=== PATIENT | female | born 1995 | race Caucasian/White ===

== ENCOUNTER → 2016-07-18 | Day surgery (SDC) | payer OTHER ==
[2016-07-09 13:59] VITALS: BMI 22.0
[~2016-07-18] VITALS: Ht 154.9 cm; Wt 52.3 kg
[~2016-07-18] MED LIST: BCPILLS PO; LIDOCAINE HCL 2% 2 ML VIAL (20MG/ML) ONE; LINA1CAP PO; MIDAZOLAM HCL 1 MG/ML 2ML VIAL ONE; ONDANSETRON INJ 2 MG/ML 2 ML VIAL ONE; PROPOFOL IV EMULSION 10 MG/ML 20 ML VIAL IV ONE; RANI150T3 PO; VNTHFA/IN INH
[2016-07-18 11:34] VITALS: TEMP 36.5
[2016-07-18 11:35] VITALS: Ht 154.9 cm; Wt 52.3 kg
--- NOTE | 2016-07-18 12:27 | Endo History and Physical ---
History & Physical Date of Service: Jul 18, 2016. Chief Complaint: CONSTIPATION Referring Physician: KATALINA MACHADO History of Present Illness 20 yo CF who presents for colonoscopy secondary to change in bowel habits ( constipation). Past Surgical History Hx Cardiac Surgery: No Hx Internal Defibrillator: No Hx Pacemaker: No Hx Abdominal Surgery: No Hx of Implantable Prosthesis: No Hx Post-Op Nausea and Vomiting: No Hx Cancer Surgery: No Hx Thoracic Surgery: No Hx Orthopedic: Yes (LEFT SHOULDER SX) Hx Urinary Tract Surgery: No Family History None Social History Smoking Status: Never Smoker Hx Substance Use: No Hx Alcohol Use: No Allergies Coded Allergies: Penicillins (Verified Allergy, Intermediate, HIVES, 07/18/16) Current Medications Reported Home Medications Medications Dose Route/Sig Max Daily Dose Days Date Category Ventolin Hfa (Albuterol) 200 Puffs/27914 Mcg Aers 2-4 Puffs INH Q6H PRN 07/09/16 Reported Control Pills (Miscellaneous) Tab 1 Tab PO QAM 07/09/16 Reported Linzess (Linaclotide) 145 Mcg Cap 1 Cap PO HS 07/09/16 Reported Vital Signs Weight (Kilograms): 52.27 Height (Feet): 5 Height (Inches): 1 Date Time Temp Pulse Resp B/P Pulse Ox O2 Delivery O2 Flow Rate FiO2 07/18/16 11:34 36.5 70 22 130/75 100 Room Air Physical Exam General Appearance: WD/WN, no apparent distress Respiratory/Chest: Auscultation: breath sounds normal Cardiovascular: Heart Auscultation: RRR Abdomen: Bowel Sounds: normal Inspection & Palpation: soft, non-distended, no tenderness, guarding & rebound Assessment and Plan Assessment: 20 yo CF who presents for colonoscopy secondary to change in bowel habits ( constipation). Plan: Proceed with colonoscopy.
--- NOTE | 2016-07-18 12:57 | GI REPORT ---
Procedure Date: 07/18/2016 11:57 AM Procedure: Colonoscopy Indications: Change in bowel habits Medicines: Monitored Anesthesia Care Complications: No immediate complications. Estimated Blood Loss: Estimated blood loss: none. Procedure: Pre-Anesthesia Assessment: - Prior to the procedure, a History and Physical was performed, and patient medications and allergies were reviewed. The patient's tolerance of previous anesthesia was also reviewed. The risks and benefits of the procedure and the sedation options and risks were discussed with the patient. All questions were answered, and informed consent was obtained. Prior Anticoagulants: The patient has taken no previous anticoagulant or antiplatelet agents. ASA Grade Assessment: II - A patient with mild systemic disease. After reviewing the risks and benefits, the patient was deemed in satisfactory condition to undergo the procedure. After I obtained informed consent, the scope was passed under direct vision. Throughout the procedure, the patient's blood pressure, pulse, and oxygen saturations were monitored continuously. The scope was introduced through the anus and advanced to the terminal ileum. The colonoscopy was performed without difficulty. The patient tolerated the procedure well. The quality of the bowel preparation was good. The terminal ileum, ileocecal valve, appendiceal orifice, and rectum were photographed. Findings: A scattered area of mild melanosis was found in the entire colon. Biopsies were taken with a cold forceps for histology. Non-bleeding internal hemorrhoids were found during retroflexion. The hemorrhoids were small. Impression: - Melanosis in the colon. Biopsied. - Non-bleeding internal hemorrhoids. Recommendation: - Resume previous diet. - Continue present medications. - Repeat colonoscopy for surveillance based on pathology results. - Return to primary care physician as previously scheduled. Mike Richardson, DO 07/18/2016 12:56:13 PM This report has been signed electronically. Note Initiated On: 07/18/2016 11:57 AM
--- NOTE | 2016-07-18 12:58 | Discharge Instructions ---
Endoscopy Patient Instructions Date / Procedure(s) Performed Jul 18, 2016. Colonoscopy Allergy Information Coded Allergies: Penicillins (Verified Allergy, Intermediate, HIVES, 07/18/16) Discharge Date / Findings Jul 18, 2016. Melanosis coli Internal hemorrhoids Medication Instructions Stopped Medication(s): LINZESS LAST DOSE 07/14/16 OK to resume all medications today as prescribed Reported Home Medications Medications Dose Route/Sig Max Daily Dose Days Date Category Ventolin Hfa (Albuterol) 200 Puffs/86173 Mcg Aers 2-4 Puffs INH Q6H PRN 07/09/16 Reported Control Pills (Miscellaneous) Tab 1 Tab PO QAM 07/09/16 Reported Linzess (Linaclotide) 145 Mcg Cap 1 Cap PO HS 07/09/16 Reported Provider Instructions Activity Restrictions - No exercising or heavy lifting for 24 hours. - Do not drink alcohol the day of the procedure. - Do not drive a car or operate machinery until the day after the procedure. - Do not make any important decisions or sign important papers in 24 hours after the procedure. Following Day: - Return to full activity which may include returning to work/school. Diet Start your diet with liquids and light foods (jello, soup, juice, toast). Then eat your usual diet if not nauseated. Treatment For Common After Affects For mild abdominal pain, bloating, or excessive gas: - Rest - Eat lightly - Lie on right side Follow-Up Information Follow-up with KATALINA MACHADO as scheduled Anesthesia Information What You Should Know You have had a procedure that required some medicine to reduce anxiety and discomfort. This treatment is called moderate sedation. After receiving the treatment, you may be sleepy, but you will be able to breathe on your own. The effects of the treatment may last for several hours. Follow these instructions along with Activity/Diet recommendations noted above: * Do NOT do anything where dizziness or clumsiness would be dangerous. * Rest quietly at home today, then you can be up and about tomorrow. * Have a responsible person stay with you the rest of today. * You may have had an I.V. today. If so, you may take the dressing off later today. Recommendations Call your doctor if: * Trouble breathing * Continuous vomiting for more than 24 hours * Temperature above 101 degrees * Severe abdominal pain or bloating * Pain not relieved by pain medicine ordered * There is increased drainage or redness from any incision * A large amount of rectal bleeding greater than 2-3 tablespoons. (If you had a polyp/s removed or have hemorrhoids, a small amount of blood - from the rectum is to be expected.) * You have any unanswered questions or concerns. IN THE EVENT OF A SERIOUS EMERGENCY, GO TO THE NEAREST EMERGENCY ROOM Your discharge instructions were prepared by provider Mike Richardson. Patient Instructions Signature Page Lori Johnson Patient (or Guardian) Signature/Date: I have read and understand the instructions given to me by my caregivers. Caregiver/RN/Doctor Signature/Date: The above-named patient and/or guardian has received patient instructions on this date. + Original Patient Signature Page (only) stays with chart. Please make copy for patient.
[2016-07-18 13:20] VITALS: BP 117/60; PULSE 59; O2SAT 100
--- NOTE | 2016-07-18 13:33 | Anesthesiology Progress Note ---
Anesthesia Post Op Note Date & Time Jul 18, 2016 at 13:32 Vital Signs Pain Intensity: 0 Vital Signs Past 12 Hours Date Time Temp Pulse Resp B/P Pulse Ox O2 Delivery O2 Flow Rate FiO2 07/18/16 13:20 59 20 117/60 100 Room Air 07/18/16 13:02 77 20 104/61 100 Room Air 07/18/16 12:47 76 16 97/49 99 Room Air 07/18/16 11:34 36.5 70 22 130/75 100 Room Air Notes Mental Status: alert / awake / arousable, participated in evaluation Pt Amnestic to Procedure: Yes Nausea / Vomiting: adequately controlled Pain: adequately controlled Airway Patency, RR, SpO2: stable & adequate BP & HR: stable & adequate Hydration State: stable & adequate Anesthetic Complications: no major complications apparent
== END | disposition home or self-care (01) ==
LOC: C.GI 11:15
PROVIDERS: ATTEND Internal Medicine
DX: R19.4 Change in bowel habit (principal); K57.30 Diverticulosis of large intestine without perforation or abscess without bleeding; K64.8 Other hemorrhoids; K63.89 Other specified diseases of intestine

== ENCOUNTER → 2017-02-05 | Outpatient (CLI) | payer OTHER ==
[~2017-02-05] MED LIST changes: -LIDOCAINE HCL 2% 2 ML VIAL (20MG/ML) ONE; -MIDAZOLAM HCL 1 MG/ML 2ML VIAL ONE; -ONDANSETRON INJ 2 MG/ML 2 ML VIAL ONE; -PROPOFOL IV EMULSION 10 MG/ML 20 ML VIAL IV ONE
[2017-02-05 17:19] LABS: BASO % 0.3 %; BASO ABS # 0.02 K/uL (0-0.2); COMPLETE YES; EOS % 1.3 %; IG% 0.2 %; LYMPH % 40.7 %; LYMPH ABS # 2.43 K/uL (1.2-3.4); MEAN CELL VOLUME 88.5 fL (80-100); MEAN CORPUSCULAR HEMOGLOBIN 29.4 pg (25-34); MEAN CORPUSCULAR HGB CONC 33.2 g/dl (32-36); MEAN PLATELET VOLUME 10.3 fL (7.4-10.4); NEUT % 48.5 %; PLATELET COUNT 291 K/uL (130-400); RED BLOOD COUNT 4.18 M/uL (4.2-5.4); WHITE BLOOD COUNT 5.97 K/uL (4.8-10.8)
[2017-02-05 17:29] LABS: TOTAL IRON BINDING CAPACITY 409 mcg/dl (250-450)
== END | disposition home or self-care (01) ==
LOC: C.LABPBG 15:18
PROVIDERS: ATTEND Physician Assistant
DX: R10.31 Right lower quadrant pain (principal); R10.32 Left lower quadrant pain; R23.8 Other skin changes

== ENCOUNTER → 2017-02-17 | Outpatient (CLI) | payer OTHER ==
[2017-02-17 17:43] LABS: BASO % 0.4 %; BASO ABS # 0.02 K/uL (0-0.2); COMPLETE YES; EOS % 1.3 %; HEMATOCRIT 36.9 % (37-47); IG% 0.2 %; LYMPH % 48.1 %; LYMPH ABS # 2.55 K/uL (1.2-3.4); MEAN CELL VOLUME 89.1 fL (80-100); MEAN CORPUSCULAR HEMOGLOBIN 30.4 pg (25-34); MEAN CORPUSCULAR HGB CONC 34.1 g/dl (32-36); MEAN PLATELET VOLUME 10.6 fL (7.4-10.4); MONO % 8.9 %; NEUT % 41.1 %; PLATELET COUNT 288 K/uL (130-400); RED BLOOD COUNT 4.14 M/uL (4.2-5.4)
[2017-02-20 16:50] LABS: EPSTEIN BARR VIR CAPSID IGG 53.1 U/ML
== END | disposition home or self-care (01) ==
LOC: C.LABPBG 15:18
PROVIDERS: ATTEND Physician Assistant
DX: R42 Dizziness and giddiness (principal); J35.1 Hypertrophy of tonsils; R53.83 Other fatigue

== ENCOUNTER → 2017-02-20 | Outpatient (CLI) | payer OTHER ==
[2017-02-20 12:24] LABS: PROTHROMBIN TIME (PATIENT) 10.8 SECONDS (9.0-12.0)
[2017-02-20 12:28] LABS: POTASSIUM 4.1 mmol/L (3.5-5.1)
== END | disposition home or self-care (01) ==
LOC: C.RAD 10:57
DX: Z01.818 Encounter for other preprocedural examination (principal)

== ENCOUNTER → 2017-05-06 | Outpatient (CLI) | payer OTHER ==
[~2017-05-06] MED LIST changes: +FLUO10CA48 PO
[2017-05-06 17:49] LABS: BASO % 0.7 %; BASO ABS # 0.04 K/uL (0-0.2); COMPLETE YES; EOS % 1.8 %; HEMATOCRIT 35.9 % (37-47); IG% 0.4 %; LYMPH % 36.5 %; LYMPH ABS # 2.05 K/uL (1.2-3.4); MEAN CELL VOLUME 86.5 fL (80-100); MEAN CORPUSCULAR HEMOGLOBIN 30.4 pg (25-34); MEAN CORPUSCULAR HGB CONC 35.1 g/dl (32-36); MEAN PLATELET VOLUME 10.6 fL (7.4-10.4); MONO % 8.9 %; NEUT % 51.7 %; PLATELET COUNT 280 K/uL (130-400); RED BLOOD COUNT 4.15 M/uL (4.2-5.4); WHITE BLOOD COUNT 5.61 K/uL (4.8-10.8)
[2017-05-06 18:04] LABS: PROTHROMBIN TIME (PATIENT) 10.2 SECONDS (9.0-12.0)
[2017-05-06 18:09] LABS: POTASSIUM 3.8 mmol/L (3.5-5.1)
== END | disposition home or self-care (01) ==
LOC: C.LABPBG 15:40
DX: Z01.818 Encounter for other preprocedural examination (principal)

== ENCOUNTER → 2017-08-06 | Outpatient (CLI) | payer OTHER ==
[2017-08-06 12:32] LABS: BASO % 0.3 %; BASO ABS # 0.02 K/uL (0-0.2); EOS % 0.5 %; EOS ABS # 0.03 K/uL (0-0.5); HEMATOCRIT 37.6 % (37-47); HEMOGLOBIN 12.9 g/dL (12.0-16.0); IG# 0.01 K/uL (0.00-0.02); LYMPH ABS # 1.44 K/uL (1.2-3.4); MEAN CELL VOLUME 88.3 fL (80-100); MEAN CORPUSCULAR HEMOGLOBIN 30.3 pg (25-34); MEAN CORPUSCULAR HGB CONC 34.3 g/dl (32-36); MEAN PLATELET VOLUME 10.6 fL (7.4-10.4); MONO % 6.2 %; MONO ABS # 0.37 K/uL (0.11-0.59); NEUT % 68.8 %; NEUT ABS # 4.14 K/uL (1.4-6.5); PLATELET COUNT 309 K/uL (130-400); RED CELL DISTRIBUTION WIDTH CV 12.8 % (11.5-14.5); RED CELL DISTRIBUTION WIDTH SD 40.9 fL (36.4-46.3); WHITE BLOOD COUNT 6.01 K/uL (4.8-10.8)
[2017-08-06 13:19] LABS: ALBUMIN 3.8 gm/dl (3.4-5.0); ALT/SGPT 21 U/L (12-78); BLOOD UREA NITROGEN 8 mg/dl (7-18); CALCIUM 9.2 mg/dl (8.5-10.1); CARBON DIOXIDE 27 mmol/L (21-32); CREATININE 0.86 mg/dl (0.60-1.20); GLUCOSE 75 mg/dl (70-99); POTASSIUM 4.1 mmol/L (3.5-5.1); SODIUM 139 mmol/L (136-145); TOTAL PROTEIN 7.4 gm/dl (6.4-8.2)
[2017-08-06 13:30] LABS: ALKALINE PHOSPHATASE 63 U/L (45-117); AST/SGOT 15 U/L (15-37)
== END | disposition home or self-care (01) ==
LOC: C.LABPBG 10:37
PROVIDERS: ATTEND Family Medicine
DX: R53.83 Other fatigue (principal)

== ENCOUNTER → 2017-08-12 | Outpatient (CLI) | payer OTHER | END | disposition home or self-care (01) | LOC: C.LABSPEC 11:05 | PROVIDERS: ATTEND Obstetrics & Gynecology | DX: Z11.3 Encounter for screening for infections with a predominantly sexual mode of transmission (principal); Z11.8 Encounter for screening for other infectious and parasitic diseases ==

== ENCOUNTER 2019-02-26 11:13 | Inpatient (IN) ==
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
[2019-02-26] MEDS ORDERED: CEFAZOLIN 2000MG 2,000 MG/15 ML SYR IV SCH (12:00)
[2019-02-26] MEDS ORDERED: CITRIC ACID/SODIUM CITRATE 15 ML UDC PO ONE (12:00)
[2019-02-26] MEDS ORDERED: LACTATED RINGER'S 1,000 ML IV SCH ×3 (12:00→16:20)
[2019-02-26 12:16] LABS: Basophils # (auto) 0.03 K/uL (0-0.2); Basophils % (auto) 0.3 %; Eosinophils # (auto) 0.06 K/uL (0-0.5); Eosinophils % (auto) 0.5 %; Hematocrit (blood only) 36.6 % (37-47); Hemoglobin 12.6 g/dL (12.0-16.0); Immature Granulocytes # (auto) 0.14 K/uL (0.00-0.02); Immature Granulocytes % (auto) 1.2 %; Lymphocytes # (auto) 1.98 K/uL (1.2-3.4); Lymphocytes % (auto) 17.5 %; Mean Corpuscular Volume 88.4 fL (80-100); Mean Platelet Volume 11.7 fL (7.4-10.4); Monocytes # (auto) 0.59 K/uL (0.11-0.59); Monocytes % (auto) 5.2 %; Neutrophils # (auto) 8.54 K/uL (1.4-6.5); Neutrophils % (auto) 75.3 %; Platelet Count 199 K/uL (130-400); RDW Coefficient of Variation 13.2 % (11.5-14.5); RDW Standard Deviation 42.1 fL (36.4-46.3); Red Blood Count 4.14 M/uL (4.2-5.4); White Blood Count 11.34 K/uL (4.8-10.8)
[2019-02-26 12:38] LABS: Mean Corpuscular Hgb Conc 34.4 g/dL (32-36)
[2019-02-26] MEDS ORDERED: OXYTOCIN 10 UNITS/ML VIAL ONE (13:01)
[2019-02-26] MEDS ORDERED: MoRPHine SULFATE PF 1 MG/ML 10 ML AMP/VIAL ONE (13:01)
[2019-02-26] MEDS ORDERED: ePHEDrine sulfate 50 MG/ML AMP ONE (13:01)
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
[2019-02-26] MEDS ORDERED: MEPERIDINE HCL 25 MG/ML CARP IV PRN (13:07)
[2019-02-26] MEDS ORDERED: MoRPHine SULFATE PF 1 MG/ML 10 ML AMP/VIAL INT SPINAL ONE (13:07)
[2019-02-26] MEDS ORDERED: NALOXONE HCL 0.08 MG in SYRINGE 1.8 ML IV PRN (13:07)
[2019-02-26] MEDS ORDERED: NALOXONE HCL 0.4 MG/1 ML VIAL/CARP IV PRN (13:07)
[2019-02-26] MEDS ORDERED: ePHEDrine sulfate 50 MG/ML AMP IV PRN (13:07)
[2019-02-26] MEDS ORDERED: METOCLOPRAMIDE HCL 20 MG in SODIUM CHLORIDE 0.9% 50 ML IV PRN (13:07)
[2019-02-26] MEDS ORDERED: PROMETHAZINE HCL 25 MG in SODIUM CHLORIDE 0.9% 50 ML IV PRN (13:07)
[2019-02-26] MEDS ORDERED: NALOXONE HCL 1 MG in SODIUM CHLORIDE 0.9% 1000ML 1,000 ML IV PRN (13:07)
[2019-02-26] MEDS ORDERED: LACTATED RINGER'S 500 ML IV PRN (13:07)
[2019-02-26] MEDS ORDERED: HYDROmorphone INJ 1 MG/ML SYRINGE IV PRN (13:07)
[2019-02-26] MEDS ORDERED: DiphenhydrAMINE HCL 50 MG/ML VIAL IV PRN (13:07)
[2019-02-26] MEDS ORDERED: DC INTRASPINAL MORPHINE SCH (13:15)
[2019-02-26] MEDS ORDERED: SODIUM CHLORIDE 0.9% 1000ML 1,000 ML IV SCH (13:15)
[2019-02-26] MEDS ORDERED: NO NARCOTICS OR SEDATIVES SCH (13:15)
--- NOTE | 2019-02-26 14:09 | Post Operative Brief Note ---
PG Immediate Post Op with CF Date of Surgery February 26, 2019 Pre & Post Diagnosis Operation Date: 02/26/19 12:15 Pre-Op Diagnosis: 1. Breech 2. Active labor Post-Op Diagnosis: !. Same, section delivery live male child at 1339 Procedure Operation Date: 02/26/19 12:15 Actual Procedures p Section in LD - Abram Henao Jr, MD, FACOG Surgeon Abram Henao Jr, MD, FACOG Janitor Iglesia Estimated Blood Loss 800 Findings See Below (viable male, Apgears 9/9; weight & 7lbs 8 ozc, art/venous gasses pending; normal appearing tubes and ovaries bilaterally) Drains Finch Catheter
--- NOTE | 2019-02-26 14:53 | Anesthesiology Progress Note ---
Date of Service February 26, 2019 Anesthesia Post Procedure Vital Signs Vital Signs: Temp Pulse Resp BP Pulse Ox 02/26/19 14:48 86 18 126/80 100 02/26/19 14:43 97 H 100 02/26/19 14:38 87 20 129/82 97 02/26/19 14:33 101 H 100 02/26/19 14:28 92 H 20 124/74 100 02/26/19 14:23 92 H 100 02/26/19 14:18 36.5 C 96 H 22 123/78 100 02/26/19 12:03 102 H 130/84 02/26/19 11:47 101 H 146/94 H 02/26/19 11:34 100 H 133/85 02/26/19 11:24 36.7 C 88 18 130/86 Transfer of Care Handoff Completed per policy Notes Mental Status: alert / awake / arousable and participated in evaluation Patient Amnestic to Procedure: Yes Nausea / Vomiting: adequately controlled Pain: adequately controlled Airway Patency, RR, SpO2: stable & adequate BP & HR: stable & adequate Hydration State: stable & adequate Neuraxial Anesthesia: was administered and sensory block is resolving Anesthetic Complications: no major complications apparent
[2019-02-26 15:19] LABS: Base Excess Cord Arterial Bld -4.5 mEq/L (-9-1.8); CO2 Cord Arterial Blood 59 mmHg (39.1-73.5); HCO3 Cord Arterial Blood 24 mmol/L (19.7-28.5); pH Cord Arterial Blood 7.24 (7.1-7.38)
[2019-02-26 15:22] LABS: Base Excess Cord Venous Blood -1.6 mEq/L (-7.7-1.9); Cord Venous Blood HCO3 24 mmol/L (18.4-26.8); Cord Venous Blood PCO2 44 mmHg (30.4-57.2); Cord Venous Blood PO2 18 mmHg (14.1-43.3); Cord Venous Blood pH 7.36 (7.20-7.44)
[2019-02-26 15:23] LABS: O2 Saturation Cord Venous Bld < 60.0 % (<68)
[2019-02-26 15:27] LABS: Oxygen Sat Cord Arterial Blood < 60.0 % (<60); PO2 Cord Arterial Blood < 10.0 % (4.1-31.7)
[2019-02-26] MEDS: KETOROLAC 30 MG/ML VIAL IV PRN ×2 (15:40→21:11)
[2019-02-26] MEDS: NALBUPHINE HCL INJ 10 MG/ML AMP IV PRN ×2 (16:02→21:09)
[2019-02-26] MEDS ORDERED: BENZOCAINE 20% AER SPR 82.5 GM CAN EXT PRN (16:20)
[2019-02-26] MEDS ORDERED: DIPHTHERIA/TETANUS/PERTUSSIS 0.5 ML SYR/VIAL IM ONE (16:20)
[2019-02-26] MEDS ORDERED: HYDROCORTISONE ACETATE 25 MG SUPP PR PRN (16:20)
[2019-02-26] MEDS ORDERED: ONDANSETRON INJ 2 MG/ML 2 ML VIAL IV PRN (16:20)
[2019-02-26] MEDS ORDERED: SUPERCREAM 0.870% 15 GM JAR EXT PRN (16:20)
[2019-02-26] MEDS: SIMETHICONE 80 MG CHEW PO SCH ×2 (16:35→20:24)
[2019-02-26] MEDS: OXYTOCIN 20 UNITS in LACTATED RINGER'S 1,000 ML IV SCH (19:55)
--- NOTE | 2019-02-26 23:34 | Operative Report ---
DATE OF OPERATION: 02/26/2019 PREOPERATIVE DIAGNOSES: 1. Term . 2. Breech presentation. 3. Active labor. POSTOPERATIVE DIAGNOSES: 1. Term . 2. Breech presentation. 3. Active labor. PROCEDURE PERFORMED: Primary low cervical transverse section. SURGEON: Abram Henao M.D. SUPERVISOR PAPER MACHINE: Dr. Dilcia Parekh ANESTHESIA: Spinal. FINDINGS: Viable male infant with Apgars of 9 and 9 and weight of 7 pounds 8 ounces, normal-appearing tubes and ovaries bilaterally. Arterial and venous cord gases are pending. PROCEDURE IN DETAIL: The patient was taken to the operating room and after spinal anesthesia, was placed in supine position and draped and prepped in the usual fashion. Pfannenstiel type incision was made. Underlying subcutaneous tissue was dissected down to the ventral abdominal fascia, which was nicked and opened in a horizontal manner. Preperitoneal fascia was dissected away until the peritoneal cavity was entered and opened in a vertical manner. Bladder blade was placed and the peritoneum overlying the uterus was elevated, opened in a semi-lunar fashion, the inferior margin of which was taken down creating the bladder flap. The uterus was entered sharply and extended in a semilunar fashion manually. Rupture of membranes for clear fluid. A viable male was delivered from a adrian breech presentation. Cord was clamped and cut and passed off to pediatrics, who was in attendance for delivery. Cord gases, cord blood samples were obtained and the placenta was delivered spontaneously. The uterus was exteriorized and the uterine cavity was wiped clean of any residual blood tissue and/or clot. The uterine incision was then closed with 2 layers of Vicryl, the first a running locking stitch, the second an imbricating stitch. Hemostasis was achieved and the uterus was returned to the pelvic cavity. The pericolic gutters were cleared bilaterally of any blood tissue and/or clot. Uterine incision was inspected for hemostasis again, which was present. The sponge and needle count was correct. Rectus muscle was plicated in the midline with a running 2-0 Vicryl stitch. The fascia was closed laterally with a running 0 Vicryl suture. The subcutaneous tissue was irrigated with warm saline and the skin incision was closed with a 4-0 Monocryl subcuticular suture. Sterile dressing was applied. The patient was taken to the recovery room in satisfactory condition. I attest to the content of the Intraoperative Record and any orders documented therein. Any exceptions are noted below. MTDD
[2019-02-27] MEDS ORDERED: Nursing to Pharmacy Communication ONE (00:32)
--- NOTE | 2019-02-27 02:33 | Anesthesia Procedure Note ---
Date of Service February 27, 2019 Anesthesia Post Epidural Note Vital Signs Vital Signs: Temp Pulse Resp BP Pulse Ox 36.8 C 82 18 124/85 97 02/26/19 23:20 02/26/19 23:20 02/27/19 01:10 02/26/19 23:20 02/27/19 01:10 Pain Intensity Bilateral Anterior Abdomen: Pain Intensity: 3 Notes Mental Status: alert / awake / arousable Nausea / Vomiting: adequately controlled Pain: adequately controlled Airway Patency, RR, SpO2: stable & adequate BP & HR: stable & adequate Hydration State: stable & adequate Neuraxial Anesthesia: was administered and sensory block is resolving Anesthetic Complications: no major complications apparent and Pt Satisfied with anesthetic care Epidural: Removed without complications and With tip intact
[2019-02-27] MEDS: OXYTOCIN 20 UNITS in LACTATED RINGER'S 1,000 ML IV SCH (03:38)
[2019-02-27] MEDS: NALBUPHINE HCL INJ 10 MG/ML AMP IV PRN (03:48)
--- NOTE | 2019-02-27 06:02 | Obstetrical Progress Note ---
Date of Service <Dilcia Parekh MD - Last Filed: 02/27/19 07:04> February 27, 2019 Assessment & Plan <Dilcia Parekh MD - Last Filed: 02/27/19 07:04> (1) Status post : Lori is a 23yo on POD 1 of elective c/s for breech presentation at term - GBS -, Rh +, Rubella immune -Vitals reviewed and WNL -patient is doing clinically well Plan for today is to remove jaeger; encourage ambulation, progress diet as tolerated, provide analgesia as needed, monitor lochia - After discharge will have [address] Henao. Subjective <Dilcia Parekh MD - Last Filed: 02/27/19 07:04> Ambulation: ambulating normally Voiding: jaeger catheter in place Passing Gas:: Yes Diet Tolerance:: regular diet Lochia:: Moderate Feeding Type:: breast feeding Current Pain Level(1-10): 0 patient examined at bedside; pain can go to an 8/10 while walking Constitutional: no fever, no chills and no sweats Respiratory: no cough and no dyspnea Cardiovascular: no chest pain and no palpitations Breast: no breast pain Gastrointestinal: no nausea and no vomiting Genitourinary (female): no dysuria and no urinary frequency Neurologic: no headache(s) Physical Exam <Dilcia Parehk MD - Last Filed: 02/27/19 07:04> Constitutional WD/WN, vitals as above no acute distress Respiratory normal respiratory effort, lungs clear to auscultation does not use accessory muscles Auscultation: no crackles, no rhonchi, no wheezes and no pleural rub Cardiovascular Rate/Rhythm: regular rate and regular rhythm Heart Sounds: normal S1 and normal S2; no gallop, no murmur and no cardiac rub Extremities: no calf tenderness and no pedal edema SCDs in place on bilateral LE Gastrointestinal (Abdomen) Inspection/Auscultation: normal bowel sounds; abdomen not distended Percussion/Palpation: abdomen soft Genitourinary Uterus: fundus firm, palpable 2 cm below the umbilicus surgical incision: dressing in place, dry; appropriate post-op tenderness Results & Data <Dilcia Parekh MD - Last Filed: 02/27/19 07:04> Vital Signs (Past 12 Hours) Vital Signs Temp Pulse Resp BP Pulse Ox 02/27/19 03:25 18 98 02/27/19 02:10 18 98 02/27/19 01:10 18 97 02/27/19 00:10 18 98 02/26/19 23:20 36.8 C 82 18 124/85 98 02/26/19 22:45 16 98 02/26/19 21:45 16 98 02/26/19 20:45 36.6 C 77 17 133/79 98 02/26/19 19:45 15 97 02/26/19 18:45 15 97 <Abram Henao Jr, MD, FACOG - Last Filed: 02/27/19 07:45> Co-Signing Physician Notes Resident Physician Supervision Note: I was present with Dr. Parekh during the history and exam. I discussed the case with the resident and agree with the findings and plan as documented in the note. Any exceptions or clarifications are listed here: Dressing removed, incision intact, appropriate post-op tenderness Documented By: Abram Henao Jr, MD, FACOG
[2019-02-27 06:59] LABS: Basophils # (auto) 0.02 K/uL (0-0.2); Basophils % (auto) 0.2 %; Eosinophils # (auto) 0.03 K/uL (0-0.5); Eosinophils % (auto) 0.2 %; Hematocrit (blood only) 33.9 % (37-47); Hemoglobin 11.6 g/dL (12.0-16.0); Immature Granulocytes # (auto) 0.07 K/uL (0.00-0.02); Immature Granulocytes % (auto) 0.6 %; Lymphocytes # (auto) 1.46 K/uL (1.2-3.4); Lymphocytes % (auto) 11.9 %; Mean Corpuscular Hgb Conc 34.2 g/dL (32-36); Mean Corpuscular Volume 87.8 fL (80-100); Mean Platelet Volume 11.3 fL (7.4-10.4); Monocytes # (auto) 0.97 K/uL (0.11-0.59); Monocytes % (auto) 7.9 %; Neutrophils # (auto) 9.76 K/uL (1.4-6.5); Neutrophils % (auto) 79.2 %; Platelet Count 157 K/uL (130-400); RDW Coefficient of Variation 13.2 % (11.5-14.5); RDW Standard Deviation 42.3 fL (36.4-46.3); Red Blood Count 3.86 M/uL (4.2-5.4); White Blood Count 12.31 K/uL (4.8-10.8)
[2019-02-27] MEDS ORDERED: KETOROLAC 30 MG/ML VIAL IV PRN (07:07)
[2019-02-27] MEDS ORDERED: DiphenhydrAMINE HCL 50 MG/ML VIAL IV PRN (07:07)
[2019-02-27] MEDS ORDERED: PRENATAL VITAMIN 1 TAB PO SCH ×2 (08:00→21:00)
[2019-02-27] MEDS: SIMETHICONE 80 MG CHEW PO SCH ×4 (08:13→21:08)
[2019-02-27] MEDS: FERROUS SULFATE 325 MG TAB PO SCH (08:14)
[2019-02-27] MEDS: IBUPROFEN 600 MG TAB PO PRN ×2 (08:14→16:05)
[2019-02-27] MEDS: OXYCODONE/ACETAMINOPHEN 5mg/325mg TAB PO PRN ×2 (08:15→18:35)
--- NOTE | 2019-02-27 16:36 | Anesthesiology Progress Note ---
Date of Service February 27, 2019 Anesthesia Post Procedure Vital Signs Vital Signs: Temp Pulse Resp BP Pulse Ox 02/27/19 11:45 36.8 C 88 20 113/74 02/27/19 07:30 37 C 98 H 20 131/82 96 02/27/19 06:05 18 100 02/27/19 05:05 37 C 88 18 123/73 100 02/27/19 04:05 18 99 02/27/19 03:25 18 98 02/27/19 02:10 18 98 02/27/19 01:10 18 97 02/27/19 00:10 18 98 02/26/19 23:20 36.8 C 82 18 124/85 98 02/26/19 22:45 16 98 02/26/19 21:45 16 98 02/26/19 20:45 36.6 C 77 17 133/79 98 02/26/19 19:45 15 97 02/26/19 18:45 15 97 02/26/19 17:45 17 96 02/26/19 16:45 17 98 Pain Intensity Bilateral Anterior Abdomen: Pain Intensity: 2 Transfer of Care Handoff Completed per policy Notes Mental Status: alert / awake / arousable Patient Amnestic to Procedure: Yes Nausea / Vomiting: adequately controlled Pain: adequately controlled Airway Patency, RR, SpO2: stable & adequate BP & HR: stable & adequate Hydration State: stable & adequate Anesthetic Complications: no major complications apparent and Pt Satisfied with anesthetic care
[2019-02-27] MEDS ORDERED: ACETAMINOPHEN 325 MG TAB PO PRN (17:29)
[2019-02-27] MEDS ORDERED: MAGNESIUM HYDROXIDE SUSP 30 ML UDC ONE (18:32)
[2019-02-27] MEDS ORDERED: SENNA 8.6 MG TAB ONE (18:32)
[2019-02-27] MEDS ORDERED: MAGNESIUM HYDROXIDE SUSP 30 ML UDC PO SCH (21:00)
[2019-02-27] MEDS ORDERED: SENNA 8.6 MG TAB PO SCH (21:00)
[2019-02-28] MEDS ORDERED: ONDANSETRON 4 MG OD TAB PO PRN (03:21)
[2019-02-28] MEDS: IBUPROFEN 600 MG TAB PO PRN ×2 (03:47→12:54)
[2019-02-28 06:55] LABS: Hematocrit (blood only) 34.3 % (37-47); Hemoglobin 11.7 g/dL (12.0-16.0)
--- NOTE | 2019-02-28 08:23 | Obstetrical Progress Note ---
Date of Service February 28, 2019 Assessment & Plan (1) Encounter for care and examination after delivery: satisfactory post-op exam continue current care plan. Present on Admission?: No Subjective Ambulation: ambulating normally Voiding: no voiding problems Passing Gas:: Yes Diet Tolerance:: nausea/vomiting (mild nausea, most likely due to percocet) Lochia:: Small Feeding Type:: breast feeding Review of Systems All systems reviewed & are unremarkable except as noted in HPI & below Physical Exam Constitutional WD/WN, vitals as above Cardiovascular Extremities: no calf tenderness Gastrointestinal (Abdomen) normal bowel sounds, soft, nontender, no hepatosplenomegaly Psychiatric A+Ox3, euthymic affect Genitourinary OB Exam Abdomen: + fundal height Fundus: + firm and + relation to umbilicus (2 below U) Results & Data Vital Signs (Past 12 Hours) Vital Signs Temp Pulse Resp BP Pulse Ox 02/27/19 23:15 98.4 F 72 16 125/84 99
[2019-02-28] MEDS: SIMETHICONE 80 MG CHEW PO SCH ×2 (08:33→12:53)
[2019-02-28] MEDS: FERROUS SULFATE 325 MG TAB PO SCH (08:34)
--- NOTE | 2019-03-01 11:34 | Discharge Summary ---
ADMITTING DIAGNOSES: 1. Term . 2. Known breech presentation. 3. Active labor. DISCHARGE DIAGNOSES: 1. Term . 2. Known breech presentation. 3. Active labor. PROCEDURES PERFORMED: Primary low cervical transverse section. DISCHARGE MEDICATIONS: 1. Percocet 5/325 1-2 p.o. q. 4-6 hours p.r.n. pain. 2. Motrin 600 mg p.o. q. 6 hours p.r.n. pain. 3. Zofran 4 mg p.o. q. 8 p.r.n. ADMISSION HISTORY: The patient is a 23-year-old 1, para 0 with an EDC of 15 March at 37+ weeks gestational age who presented to labor and delivery from the office for breech presentation and probable active labor. The patient was seen today for routine OB visit and was noted to be nanette regularly. The provider in the office had noted a cervical change from her last week's examination and sent her to labor and delivery for evaluation. Of note is that the patient is a known breech presentation. She had had an attempted external cephalic version on 18 February which was unsuccessful. The remainder of the patient's course has been unremarkable. Her blood type is O positive, antibody negative, rubella immune, hepatitis B negative. She had a negative cell-free DNA screening. She had a normal 1-hour Glucola x2 and a negative third trimester beta strep culture. ADMISSION PHYSICAL EXAMINATION: GENERAL: Showed a gravid female in no acute distress. VITAL SIGNS: Blood pressure of 130/86. HEENT: Unremarkable. NECK: Supple. LUNGS: Clear. HEART: With a regular rhythm and rate. ABDOMEN: Gravid, breech. Positive heart tones, estimated weight of 7-1/2 pounds. PELVIC: 3-4 cm dilated, 100% effaced, -2 station, no presenting part in the pelvis. EXTREMITIES: No deep calf tenderness. NEUROLOGIC: Grossly intact. ADMISSION LABORATORY VALUES: Showed H and H of 12.6 and 36.6. HOSPITAL COURSE: The patient's cervical examination had shown change from when she had been in the office in just 90 minutes previous. She was felt to be deemed in active labor. Because of this, the decision was made to proceed with a primary low cervical transverse section. Risks, benefits and alternatives to the surgery were discussed and the permit was signed. The patient was taken to the operating room where she underwent the above-listed procedures. Operative findings showed a viable male with Apgars of 9 and 9 and a weight of 7 pounds 8 ounces. Arterial cord pH of 7.24, venous cord pH of 7.36. Postoperatively, the patient did well. Finch catheter was removed on the first postoperative day. H and H came back at 11.6 and 33.9. By the 2nd postoperative day, the patient was ambulating without difficulty and tolerating a regular diet. She requested discharge to home. She was given the routine discharge instructions and the prescriptions for the medications as listed as above. She will follow up in the office for a postoperative check, but as always she has been instructed to call with any questions, problems or difficulties.
== END 2019-02-28 13:40 | disposition home or self-care (01) | DRG 788 ==
LOC: OPB 11:13 → 4S1 11:15 → 4S2 16:19

== ENCOUNTER 2020-10-06 02:40 | Inpatient (IN) ==
[2020-10-06] MEDS ORDERED: LACTATED RINGER'S 1,000 ML IV SCH ×3 (03:30→06:00)
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
[2020-10-06 03:46] LABS: Hematocrit (blood only) 33.9 % (37-47); Hemoglobin 11.9 g/dL (12.0-16.0); Mean Corpuscular Hemoglobin 30.2 pg (25-34); Mean Corpuscular Hgb Conc 35.1 g/dL (32-36); Mean Platelet Volume 11.8 fL (7.4-10.4); Platelet Count 167 K/uL (130-400); RDW Coefficient of Variation 13.4 % (11.5-14.5); RDW Standard Deviation 42.2 fL (36.4-46.3); Red Blood Count 3.94 M/uL (4.2-5.4); White Blood Count 8.77 K/uL (4.8-10.8)
[2020-10-06] MEDS ORDERED: ceFAZolin 2000MG 2,000 MG/15 ML SYR IV STA (04:02)
[2020-10-06] MEDS ORDERED: CITRIC ACID/SODIUM CITRATE 15 ML UDC PO STA (04:02)
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
[2020-10-06] MEDS ORDERED: OXYTOCIN 10 UNITS/ML VIAL ONE ×2 (04:14→05:01)
[2020-10-06] MEDS ORDERED: fentaNYL citrate 100 MCG/2 ML VIAL ONE (04:16)
[2020-10-06] MEDS ORDERED: MoRPHine SULFATE PF 1 MG/ML 10 ML AMP/VIAL ONE (04:16)
[2020-10-06] MEDS ORDERED: DEXAMETHASONE SOD INJ 4 MG/ML VIAL ONE (04:56)
[2020-10-06] MEDS ORDERED: ONDANSETRON INJ 2 MG/ML 2 ML VIAL ONE (04:56)
[2020-10-06] MEDS ORDERED: PROMETHAZINE HCL INJ 25 MG/ML 1 ML VIAL ONE (04:57)
[2020-10-06] MEDS ORDERED: MIDAZOLAM HCL 1 MG/ML 2ML VIAL ONE (05:05)
--- NOTE | 2020-10-06 05:33 | Post Operative Brief Note ---
PG Immediate Post Op with CF Date of Surgery October 06, 2020 Pre & Post Diagnosis Operation Date: 10/06/20 04:30 Pre-Op Diagnosis: 1. IUP at 38 weeks gestation 2. Spontaneous rupture of membranes 3. Prior section 4. Desires repeat section Post-Op Diagnosis: 1. Same 2. Delivery of live male child at 0453 I identified the patient and participated in the time-out.: Yes Procedure Operation Date: 10/06/20 04:30 Actual Procedures p Repeat Low Transverse Section in LD - Lynda Carlson MD, FACOG Surgeon Lynda Carlson MD, FACOG Inside Sales Advertising Executive RN Estimated Blood Loss 600 Findings Consistent with Post-Op Diagnosis (viable female , normal uterus tubes and ovaries bilaterally.) Fluids 1500 Specimens Specimen Description: Placenta-hold Cord blood Drains Finch Catheter Anesthesia Type Spinal Complications none Disposition Accompanied Patient To Recovery: No Disposition: L&D
[2020-10-06] MEDS ORDERED: diphenhydrAMINE 50 MG/ML VIAL IV PRN ×2 (05:41→23:41)
[2020-10-06] MEDS ORDERED: NALOXONE HCL 0.08 MG in SYRINGE 1.8 ML IV PRN (05:41)
[2020-10-06] MEDS ORDERED: NALOXONE HCL 0.4 MG/1 ML VIAL/CARP IV PRN (05:41)
[2020-10-06] MEDS ORDERED: KETOROLAC 30 MG/ML VIAL IV PRN ×2 (05:41→23:41)
[2020-10-06] MEDS ORDERED: ONDANSETRON INJ 2 MG/ML 2 ML VIAL IV PRN ×2 (05:41→23:41)
[2020-10-06] MEDS ORDERED: ePHEDrine sulfate 50 MG/ML AMP IV PRN (05:41)
[2020-10-06] MEDS ORDERED: NALOXONE HCL 1 MG in SODIUM CHLORIDE 0.9% 1000ML 1,000 ML IV PRN (05:41)
[2020-10-06] MEDS ORDERED: PROMETHAZINE HCL 12.5 MG in SODIUM CHLORIDE 0.9% 50 ML IV PRN (05:41)
[2020-10-06] MEDS ORDERED: LACTATED RINGER'S 500 ML IV PRN (05:41)
[2020-10-06] MEDS ORDERED: MoRPHine SULFATE PF 1 MG/ML 10 ML AMP/VIAL INT SPINAL ONE (05:41)
[2020-10-06] MEDS ORDERED: SODIUM CHLORIDE 0.9% 1000ML 1,000 ML IV SCH (05:45)
[2020-10-06] MEDS ORDERED: DC INTRASPINAL MORPHINE SCH (05:45)
[2020-10-06] MEDS ORDERED: NO NARCOTICS OR SEDATIVES SCH (05:45)
[2020-10-06] MEDS ORDERED: MAGNESIUM HYDROXIDE SUSP 30 ML UDC PO PRN (05:58)
[2020-10-06] MEDS ORDERED: HYDROCORTISONE ACETATE 25 MG SUPP PR PRN (05:58)
[2020-10-06] MEDS ORDERED: DIPHTHERIA/TETANUS/PERTUSSIS 0.5 ML SYR/VIAL IM ONE (05:58)
[2020-10-06] MEDS ORDERED: SENNA 8.6 MG TAB PO PRN (05:58)
[2020-10-06] MEDS ORDERED: SUPERCREAM 0.870% 15 GM JAR EXT PRN (05:58)
[2020-10-06] MEDS ORDERED: BENZOCAINE 20% AER SPR 82.5 GM CAN EXT PRN (05:58)
--- NOTE | 2020-10-06 06:02 | Operative Report ---
PG Post Operative Report Pre & Post Diagnosis Operation Date: 10/06/20 04:30 Pre-Op Diagnosis: 1. IUP at 38 weeks gestation 2. Spontaneous rupture of membranes 3. Prior section 4. Desires repeat section Post-Op Diagnosis: 1. Same 2. Delivery of live male child at 0453 I identified the patient and participated in the time-out.: Yes Procedure Operation Date: 10/06/20 04:30 Actual Procedures Repeat Low Transverse Section Surgeon Lynda Carlson MD, FACOG Lease Analyst RN Estimated Blood Loss 600 Findings Consistent with Post-Op Diagnosis (viable male , apgars 8,9, normal uterus tubes and ovaries bilaterally. omenatal adhesion to lower uterine segment. ) Fluids 1500 Specimens cord blood Drains jaeger Anesthesia Type Spinal Complications none Disposition Accompanied Patient To Recovery: No Disposition: L&D Indications 25yo at 38wks ega with prior section, desiring repeat section who presents with spontaneous rupture of membranes. No evidence of labor. Readied for section and consent reviewed and signed. Description of Procedure The patient was taken to the operating room and identified. After adequate anesthesia was obtained, she was placed in the supine position with a leftward tilt on the operating table and prepped and draped in the usual sterile fashion. A jaeger catheter had already been placed. The knife was used to create a Pfannensteil skin incision and a keloid scar was excised. The incision was then carried down to the underlying layer of fascia. The fascia was nicked in the midline and this opening was extended laterally using Dooley scissors. Андрей clamps were placed on the superior and inferior aspect of the fascial incision tenting it upward and the underlying rectus muscles were dissected off the overlying fascia both sharply and bluntly using Dooley scissors. The rectus muscles were using a hemostat in the midline. The peritoneum was elevated with two hemostats and entered into sharply using scissors. The rectus muscles were further taken down sharply with the scissors and then the opening was stretched. The bladder blade was placed. The vesicouterine peritoneum was elevated and opened up into and the bladder flap was created digi tally and bladder blade was replaced. The knife was used to create a hysterotomy and this opening was stretched. An amniotomy was performed. The operators hand was placed through the hysterotomy and the bladder blade was removed. The head was elevated and flexed and with fundal pressure the head was delivered. The shoulders and body were rapidly delivered. The cord was clamped and cut and the 's mouth and nares were bulb suction. The infant was handed off to the awaiting pediatricians. Cord blood was obtained. The placenta was manually expressed. The uterus was exteriorized and cleared of all clots and debris. Dilute IV Pitocin was begun. The uterine tone was improving. The hysterotomy was closed in a running interlocking fashion using 0 Vicryl followed by a second imbricating layer of 0 Vicryl. The hysterotomy was hemostatic. The pelvis was irrigated. The uterus was returned to the abdomen. The gutters were cleared of all clots and debris. The hysterotomy was reinspected and noted to be hemostatic. The fascia was then closed in running fashion using 0 Vicryl. The subcutaneous fat was copiously irrigated and reapproximated using 2-0 chromic. The skin was closed in a subcuticular fashion using 4-0 Vicryl. Benzoin and steri strips were applied. At this point the procedure was terminated. The patient was transferred to the recovery room in stable condition. All sponge, lap and needle counts are correct x2. I attest to the content of the Intraoperative Record and any orders documented therein. Any exceptions are noted below. OB Procedure charges OB Charges [id number] C/S
--- NOTE | 2020-10-06 06:06 | Anesthesiology Progress Note ---
Date of Service October 06, 2020 Anesthesia Post Procedure Vital Signs Vital Signs: Temp Pulse Resp BP Pulse Ox 10/06/20 06:02 96 H 137/87 10/06/20 06:01 100 H 99 10/06/20 05:56 113 H 100 10/06/20 05:52 81 127/67 10/06/20 05:51 88 100 10/06/20 05:46 92 H 100 10/06/20 05:42 96 H 123/67 10/06/20 05:41 98 H 100 10/06/20 02:59 37.2 C 100 H 18 132/81 Transfer of Care Handoff Completed per policy Notes Mental Status: alert / awake / arousable Patient Amnestic to Procedure: Yes Nausea / Vomiting: adequately controlled Pain: adequately controlled Airway Patency, RR, SpO2: stable & adequate BP & HR: stable & adequate Hydration State: stable & adequate Neuraxial Anesthesia: was administered and sensory block is resolving Anesthetic Complications: no major complications apparent
[2020-10-06] MEDS: OXYTOCIN 20 UNITS in LACTATED RINGER'S 1,000 ML IV SCH ×2 (06:17→15:12)
[2020-10-06] MEDS: FERROUS SULFATE 325 MG TAB PO SCH (09:29)
[2020-10-06] MEDS: PRENATAL VITAMIN 1 TAB PO SCH (09:29)
[2020-10-06] MEDS: SIMETHICONE 80 MG CHEW PO SCH ×3 (09:29→20:24)
[2020-10-06] MEDS: DOCUSATE SODIUM 100 MG CAP PO SCH ×2 (09:29→20:24)
[2020-10-06] MEDS ORDERED: PROMETHAZINE HCL 25 MG in SODIUM CHLORIDE 0.9% 50 ML IV PRN (23:41)
[2020-10-06] MEDS ORDERED: diphenhydrAMINE Capsule 25 MG CAP PO PRN (23:41)
[2020-10-07] MEDS ORDERED: MINERAL OIL 30 ML UDC ONE (00:37)
--- NOTE | 2020-10-07 04:39 | Obstetrical Progress Note ---
Date of Service <Kirby Montez MD - Last Filed: 10/07/20 06:32> October 07, 2020 Assessment & Plan <Kirby Montez MD - Last Filed: 10/07/20 06:32> (1) 38 weeks gestation of : - PNL: Rh [pos], RI, GBS [neg], COVID [neg] - Feels well today. Eating well, voiding well, ambulating well - Pain well controlled with ibuprofen 600mg Q4H PRN - Routine postoperative care -- OOB, ambulation, diet progression as tolerated - After discharge will have 6 week follow-up with Dr. Carlson Subjective <Kirby Montez MD - Last Filed: 10/07/20 06:32> Lori is a 25 y/o female who is POD # following at 38+ weeks. She reports feeling well overall this morning. Occasional abdominal cramping and 0/10 pain well managed on analgesics. Voiding well. Tolerating meals overnight without difficulty. Patient has been able to ambulate some. Is passing gas, has not yet had a bowel movement. Has persistent lochia with some improvement this morning. Currently . Physical Exam <Kirby Montez MD - Last Filed: 10/07/20 06:32> General: Alert, oriented. No acute distress. Cardiac: Regular rate and rhythm. No murmurs. Respiratory: Clear to auscultation bilaterally a/p, no wheezes/rales/rhonchi. No increased work of breathing. Symmetrical chest rise. No respiratory distress. Abdomen: Soft, nontender, nondistended. Bowel sounds present. Surgical scar clean, dry, intact. Uterus: Uterine fundus firm, palpable ~1 cm below umbilicus. Lower Extremities: No lower extremity edema or swelling. No deep calf pain. Alina's negative bilaterally. Results & Data ([facility]) <Kirby Montez MD - Last Filed: 10/07/20 06:32> Vital Signs (Past 12 Hours) Vital Signs Temp Pulse Resp BP Pulse Ox 10/07/20 00:10 36.7 C 87 17 118/73 95 10/06/20 23:20 16 97 03/26/21 22:20 16 98 10/06/20 21:20 15 97 10/06/20 20:20 36.6 C 76 16 116/77 97 10/06/20 19:20 16 97 <Kiana Calero MD - Last Filed: 10/07/20 08:11> Co-Signing Physician Notes Resident Physician Supervision Note: I interviewed and examined the patient. Discussed with Dr. Hawk and agree with findings and plan as documented in the note. Any exceptions or clarifications are listed here: [ ] Documented By: Kiana Calero MD, FACOG Resident Activity Tracking <Kirby Montez MD - Last Filed: 10/07/20 06:32> Resident Involvement: Resident Care Provided Care Provided: OB Delivery
[2020-10-07] MEDS: IBUPROFEN 600 MG TAB PO PRN ×4 (06:23→23:26)
[2020-10-07 06:42] LABS: Basophils # (auto) 0.01 K/uL (0-0.2); Basophils % (auto) 0.1 %; Eosinophils # (auto) 0.07 K/uL (0-0.5); Eosinophils % (auto) 0.8 %; Hematocrit (blood only) 31.4 % (37-47); Hemoglobin 10.9 g/dL (12.0-16.0); Immature Granulocytes # (auto) 0.08 K/uL (0.00-0.02); Immature Granulocytes % (auto) 0.9 %; Lymphocytes # (auto) 1.52 K/uL (1.2-3.4); Lymphocytes % (auto) 16.8 %; Mean Corpuscular Hemoglobin 29.9 pg (25-34); Mean Corpuscular Hgb Conc 34.7 g/dL (32-36); Mean Platelet Volume 11.4 fL (7.4-10.4); Monocytes # (auto) 0.84 K/uL (0.11-0.59); Monocytes % (auto) 9.3 %; Neutrophils # (auto) 6.54 K/uL (1.4-6.5); Neutrophils % (auto) 72.1 %; Platelet Count 151 K/uL (130-400); RDW Coefficient of Variation 13.4 % (11.5-14.5); RDW Standard Deviation 41.9 fL (36.4-46.3); Red Blood Count 3.65 M/uL (4.2-5.4); White Blood Count 9.06 K/uL (4.8-10.8)
[2020-10-07] MEDS: PRENATAL VITAMIN 1 TAB PO SCH (09:14)
[2020-10-07] MEDS: FERROUS SULFATE 325 MG TAB PO SCH (09:14)
[2020-10-07] MEDS: SIMETHICONE 80 MG CHEW PO SCH ×3 (09:14→21:05)
[2020-10-07] MEDS: DOCUSATE SODIUM 100 MG CAP PO SCH ×2 (09:14→21:05)
[2020-10-07] MEDS: oxyCODONE/ACETAMINOPHEN 5mg/325mg TAB PO PRN ×3 (10:50→23:26)
[2020-10-07] MEDS ORDERED: bisacodyL 5 MG TABEC PO SCH (20:00)
[2020-10-08] MEDS: oxyCODONE/ACETAMINOPHEN 5mg/325mg TAB PO PRN (04:09)
[2020-10-08] MEDS: IBUPROFEN 600 MG TAB PO PRN ×2 (04:10→08:18)
[2020-10-08] MEDS ORDERED: bisacodyL 10 MG SUPP PR PRN (05:54)
[2020-10-08 06:30] LABS: Hematocrit (blood only) 31.7 % (37-47); Hemoglobin 11.2 g/dL (12.0-16.0)
[2020-10-08] MEDS: PRENATAL VITAMIN 1 TAB PO SCH (08:18)
[2020-10-08] MEDS: SIMETHICONE 80 MG CHEW PO SCH (08:18)
[2020-10-08] MEDS: DOCUSATE SODIUM 100 MG CAP PO SCH (08:18)
[2020-10-08] MEDS: FERROUS SULFATE 325 MG TAB PO SCH (08:18)
--- NOTE | 2020-10-08 10:06 | Obstetrical Progress Note ---
Date of Service October 08, 2020 Assessment & Plan (1) Encounter for care and examination after delivery: 25yo day 2 s/p rLTCS. Doing well. Stable for discharge Subjective Ambulation: ambulating normally Voiding: no voiding problems Passing Gas:: Yes Diet Tolerance:: regular diet Lochia:: Moderate Physical Exam Constitutional WD/WN, vitals as above Respiratory normal respiratory effort; no respiratory distress and no labored breathing Gastrointestinal (Abdomen) Inspection/Auscultation: abdomen normal to inspection; abdomen not distended Percussion/Palpation: abdomen soft; abdomen nontender, no guarding and abdomen not rigid Genitourinary OB Exam Abdomen: + fundal height Fundus: + firm and + relation to umbilicus (Below); not tender and not boggy Results & Data ([facility]) Vital Signs (Past 12 Hours) Vital Signs Temp Pulse Resp BP Pulse Ox 10/08/20 07:30 36.7 C 82 18 116/83 98 10/07/20 23:00 36.4 C L 84 18 118/64 97
--- NOTE | 2020-10-10 10:36 | Discharge Summary ---
Date of Service Day of admission: October 06, 2020 Day of discharge: October 08, 2020 Admission HPI Per Admitting Provider 25yo at 38+wks blanco presents to L&D with SROM, planned c/s. Patient called this early am noting large loss of fluid. She was evaluated earlier yesterday for contractions and possible leaking and sent home. She notes that she is planning repeat section. On her arrival, gross srom was noted. Pads soaked under her and nitrazine positive. Her contractions remain irregular but are stronger individually. No vb. PNC c/b 1. Prior c/s --desires repeat c/s PNL rh pos, ri, gbs neg OBH: 37wk breech, c/s delivery GYNH: nl paps, no stds All Active Problems Acute pancreatitis (~08/2020) COVID-19 (Acute 09/01/20) Encounter for supervision of normal in multigravida, antepartum Previous delivery affecting , antepartum Migraines Acne Anxiety IBS (irritable bowel syndrome) Asthma Discharge Data Consultations 10/06/20 03:27 Consult Anesthesiology Stat Procedures Performed Operation Date: 10/06/20 04:30 Actual Procedures p Repeat Low Transverse Section in LD - Lynda Carlson MD, [facility] Course (1) Encounter for care and examination after delivery: The patient underwent the above stated procedure without incident and her postoperative course and recovery was uncomplicated. On her postoperative day #2 she was tolerating a regular diet, voiding spontaneously, ambulating without problem and was using oral meds for adequate pain control. Her postoperative hemoglobin was 11.2. She was given written and verbal discharge instructions and told to followup in office at 6wks. She was given appropriate pain medicine prescriptions. Coding Level of Care Code None Diagnoses Encounter for care and examination after delivery Z39.2
== END 2020-10-08 11:05 | disposition home or self-care (01) | DRG 788 ==
LOC: OPB 02:40 → 4S1 02:55 → 4S2 07:50